=== PATIENT | male | born 1960 | race Caucasian/White ===

== ENCOUNTER 2016-11-19 03:02 | Inpatient (IN) | payer OTHER ==
[~2016-11-19] VITALS: Ht 172.7 cm; Wt 117.9 kg
[2016-11-19 04:36] LABS: HEMOGLOBIN 15.1 gm/dl (14.0-17.5); RED BLOOD COUNT 5.06 M/UL (4.20-5.50); WHITE BLOOD COUNT 18.8 K/UL (4.5-11.0)
[2016-11-19 04:55] LABS: BUN/CREATININE RATIO 11 (0-10)
[2016-11-19] MEDS ORDERED: LIPITOR TAB 2020 MG PO (07:33)
[2016-11-19] MEDS ORDERED: PHENERGAN W/CO473 M1 PO ×2 (07:34→07:35)
[2016-11-19] MEDS ORDERED: ASPIRIN81 MG PO (07:35)
[2016-11-19] MEDS ORDERED: SALINE NASAL SP88 ML (07:36)
[2016-11-19 14:27] LABS: GLUCOSE,CSF 83 mg/dL (50-80); TOTAL PROTEIN,CSF 49 mg/dL (20-45)
[2016-11-20 00:03] LABS: HEMOGLOBIN 12.8 gm/dl (14.0-17.5); RED BLOOD COUNT 4.31 M/UL (4.20-5.50); WHITE BLOOD COUNT 10.3 K/UL (4.5-11.0)
[2016-11-20 03:45] LABS: RED BLOOD COUNT 4.41 M/UL (4.20-5.50); WHITE BLOOD COUNT 9.6 K/UL (4.5-11.0)
== END 2016-11-20 14:15 | disposition short-term general hospital (02) | DRG 97 ==
LOC: ER1 03:02 → ZEROF 05:16 → CCU 05:16
PROVIDERS: Internal Medicine; Internal Medicine Nephrology; Specialist/Technologist Athletic Trainer; ADMIT Internal Medicine
PROC: 5A1945Z Respiratory Ventilation, 24-96 Consecutive Hours (ICD-10-PCS; principal; 2016-11-19)
PROC: 0BH17EZ Insertion of Endotracheal Airway into Trachea, Via Natural or Artificial Opening (ICD-10-PCS; 2016-11-19)
PROC: 009U3ZX Drainage of Spinal Canal, Percutaneous Approach, Diagnostic (ICD-10-PCS; 2016-11-19)
PROC: B01BZZZ Fluoroscopy of Spinal Cord (ICD-10-PCS; 2016-11-19)
DX: A86 Unspecified viral encephalitis (principal); G93.40 Encephalopathy, unspecified; N17.0 Acute kidney failure with tubular necrosis; E87.2 Acidosis; N39.0 Urinary tract infection, site not specified; G40.409 Other generalized epilepsy and epileptic syndromes, not intractable, without status epilepticus; I10 Essential (primary) hypertension; E78.5 Hyperlipidemia, unspecified; S01.512A Laceration without foreign body of oral cavity, initial encounter; X58.XXXA Exposure to other specified factors, initial encounter; R73.01 Impaired fasting glucose; J32.0 Chronic maxillary sinusitis; E66.9 Obesity, unspecified; Z68.39 Body mass index [BMI] 39.0-39.9, adult; Z79.82 Long term (current) use of aspirin; Z79.899 Other long term (current) drug therapy; Z82.49 Family history of ischemic heart disease and other diseases of the circulatory system
CPT/HCPCS: 31500; 36415; 36600; 51702; 70450; 71010; 80048; 80053; 80074; 80307; 81001; 82009; 82140; 82550; 82553; 82570; 82803; 82945; 82962; 83036; 83605; 83735; 83874; 84156; 84157; 84300; 84439; 84443; 84484; 85025; 85610; 85730; 86039; 86060; 86160; 86162; 86225; 86334; 86618; 87040; 87070; 87086; 87205; 87210; 89051; 93005; 94002; 94003; 95819; 96361; 96372; 96374; 96375; 99285; A4628; C9113; G0480; J0133; J0330; J0696; J1650; J1953; J2060; J7030; J7040; J7050